=== PATIENT | male | born 1995 | race Caucasian/White ===

== ENCOUNTER 2018-03-15 01:20 | Emergency (ER) | payer OTHER ==
--- NOTE | 2018-03-15 01:38 | ED Physician Documentation ---
PD HPI CHEST PAIN - Stated complaint Stated Complaint: CHEST PX - Chief complaint Chief Complaint: Cardiac - History obtained from History obtained from: Patient - History of Present Illness Timing - onset: How many days ago (3) Timing - details: Gradual onset, Still present Quality: Pressure, Aching, Sharp Location: Left chest Worsened by: Inspiration, Movement Associated symptoms: Cough. No: Shortness of air, Diaphoresis, Nausea Similar symptoms before: Has not had sx before Recently seen: Not recently seen - Additional information Additional information: patient is a 22 year old male with no significant past medical history who is presenting to the emergency department for chest pain. patient reports that for the last 4 days or so he has had a cough and developed chest pain with the cough. patient states that the cough is better but he has had worsening chest pain. patient states it is worse with certain movements and breathing. patient denies any family history of clots, or coughing up blood. Review of Systems Constitutional: denies: Fever, Chills Cardiac: reports: Chest pain / pressure. denies: Palpitations, Calf pain Respiratory: reports: Cough. denies: Wheezing GI: denies: Nausea, Vomiting PD PAST MEDICAL HISTORY - Past Medical History Past Medical History: No - Past Surgical History Past Surgical History: Yes Ortho: Other - Present Medications Home Medications: Ambulatory Orders Medication Instructions Recorded Confirmed Ibuprofen 400 mg PO 03/15/18 - Allergies Allergies/Adverse Reactions: Allergies Allergy/AdvReac Type Severity Reaction Status Date / Time No Known Drug Allergies Allergy Verified 03/15/18 01:29 - Social History Does the pt smoke?: No Smoking Status: Never smoker Does the pt drink ETOH?: Yes Does the pt have substance abuse?: No - Immunizations Immunizations are current?: Yes - POLST Patient has POLST: No PD ED PE NORMAL - Vitals Vital signs reviewed: Yes - General General: Alert and oriented X 3 - HEENT HEENT: Atraumatic - Neck Neck: Supple, no meningeal sign, No JVD - Cardiac Cardiac: RRR - Respiratory Respiratory: No respiratory distress, Clear bilaterally - Abdomen Abdomen: Soft, Non tender, Non distended - Derm Derm: Normal color, Warm and dry - Extremities Extremities: No deformity, No edema, No calf tenderness / cord - Neuro Neuro: Alert and oriented X 3, No motor deficit, Normal speech Eye Opening: Spontaneous Motor: Obeys Commands Verbal: Oriented GCS Score: 15 - Psych Psych: Normal mood PD ED PE EXPANDED - HEENT HEENT: Nasal congestion, Rhinorrhea Results - Vitals Vitals: Vital Signs - 24 hr 03/15/18 03/15/18 03/15/18 01:23 01:34 02:00 Temperature 36.8 C Heart Rate 92 90 Respiratory 23 19 Rate Blood Pressure 147/85 H Blood Pressure [Left] Blood Pressure 145/78 H [Right] O2 Saturation 100 99 03/15/18 03/15/18 02:06 02:53 Temperature Heart Rate 84 Respiratory 21 Rate Blood Pressure 131/76 H Blood Pressure 134/71 H [Left] Blood Pressure [Right] O2 Saturation 98 Oxygen O2 Source Room air - EKG (time done) 0129 Rate: Rate (enter#) (86) Rhythm: NSR [place]: Normal Intervals: Normal [place] QRS: Normal - Labs Labs: Laboratory Tests 03/15/18 01:29 Troponin I < 0.04 - Rads (name of study) chest x-ray Radiology: Final report received (no effu), EMP read contemporaneously (no pneumothorax no effusion, cardiomegaly or focal infiltrate) PD MEDICAL DECISION MAKING - ED course Complexity details: reviewed old records, reviewed results, re-evaluated patient , considered differential, d/w patient ED course: Patient was seen and examined at bedside. patient was well appearing and in no distress. ekg was performed and was normal sinus. labs were drawn and chest x- ray was ordered. patient's PERC score was 0, as was his heart score. patient was treated with toradol and decadron. patient's chest x-ray was unremarkable. patient requiered no further work up and was stable for discharge with outpatient follow up. - Sepsis Event Vital Signs: Vital Signs - 24 hr 03/15/18 03/15/18 03/15/18 01:23 01:34 02:00 Temperature 36.8 C Heart Rate 92 90 Respiratory 23 19 Rate Blood Pressure 147/85 H Blood Pressure [Left] Blood Pressure 145/78 H [Right] O2 Saturation 100 99 03/15/18 03/15/18 02:06 02:53 Temperature Heart Rate 84 Respiratory 21 Rate Blood Pressure 131/76 H Blood Pressure 134/71 H [Left] Blood Pressure [Right] O2 Saturation 98 Oxygen O2 Source Room air Departure - Departure Disposition: 01 Home, Self Care Clinical Impression: Chest wall pain Condition: Good Instructions: ED Chest Pain NonCardiac Follow-Up: primary,care provider [Other] Comments: Your diagnostics today were within normal limits. there were no abnormalities on your blood work, ekg or x-ray. Your symptoms are unlikely cardiac in nature. The two most likely possibilities is pleurisy (inflammation of your pleura) or muscle strain in your chest from coughing. they are both treated the same way, conservatively with ibuprofen and tylenol. You should follow up with your doctor if your symptoms persist. You may return to the emergency department at any time for new, worsening or uncontrollable symptoms.
[2018-03-15] MEDS ORDERED: DEXAMETHASONE 10 MG/ML VIAL PO STA (02:20)
[2018-03-15] MEDS ORDERED: KETOROLAC 60 MG/2 ML VIAL IM STA (02:20)
[2018-03-15] MEDS ORDERED: CHERRY SYRUP 10 ML UDC PO ONE (02:35)
--- NOTE | 2018-03-15 03:10 | XRAY Report ---
Procedure Date: 03/15/2018 Accession Number: [id number] / [id number] Procedure: XR - Chest 2 View X-Ray CPT Code: 89876 FULL RESULT: EXAM: CHEST RADIOGRAPHY EXAM DATE: 03/15/2018 02:22 AM. CLINICAL HISTORY: Chest pain. COMPARISON: None. TECHNIQUE: 2 views. FINDINGS: Lungs/Pleura: No alveolar consolidation or pleural effusion seen. No pneumothorax. Mediastinum: Heart and mediastinal contours are unremarkable. Other: None. IMPRESSION: 1. No acute abnormality seen in the chest. [facility]
[2018-03-15 03:13] VITALS: BP 109/75
== END 2018-03-15 03:18 | disposition home or self-care (01) ==
LOC: ED 01:20
DX: R07.89 Other chest pain (principal)
CPT/HCPCS: 36415; 71046; 84484; 93005; 96372; 99284; A9270